=== PATIENT | female | born 1940 | race Caucasian/White ===

== ENCOUNTER 2023-03-15 17:27 | Inpatient (IN) | payer OTHER ==
[~2023-03-15] VITALS: Ht 167.6 cm; Wt 93.2 kg
[2023-03-15] MEDS ORDERED: hydrALAZINE HCL 10 MG TAB PO PRN (20:00)
[2023-03-15] MEDS ORDERED: ACETAMINOPHEN 325 MG TAB PO PRN (20:00)
[2023-03-15] MEDS ORDERED: HYDROcodone-ACET 5/325MG TAB PO PRN (20:00)
[2023-03-15] MEDS ORDERED: MORPHINE SULFATE INJ 2 MG/ml SYRG IV PRN (20:00)
[2023-03-15] MEDS ORDERED: ONDANSETRON HCL 4 MG/2 ML VIAL IV PRN (20:00)
[2023-03-15 22:00] VITALS: BP 148/82
[2023-03-15] MEDS: VANCOMYCIN HCL 125MG/5ML ORAL SOL PO SCH (22:00)
[2023-03-15] MEDS ORDERED: metroNIDAZOLE 500MG/100ML 100 ML IV SCH (23:29)
[2023-03-16] VITALS (9 sets, daily range): BP systolic 119–154; BP diastolic 53–82
[2023-03-16] MEDS: SODIUM CHLORIDE 0.9% 1,000 ML IV SCH ×3 (01:14→13:05)
[2023-03-16 05:56] LABS: Basophils # (auto) 0 10 ^3/uL (0-0.2); Basophils % (auto) 0.5 % (0.0-2.0); Eosinophils # (auto) 0.2 10 ^3/uL (0-0.8); Eosinophils % (auto) 2.1 % (0.0-7.0); Hematocrit 36.1 % (36.0-46.0); Hemoglobin 11.9 g/dL (12.2-16.2); Lymphocytes # (auto) 2.5 10 ^3/uL (0.4-5.4); Lymphocytes % (auto) 31.8 % (10.0-50.0); Mean Corpuscular Hemoglobin 28.5 pg (28.0-32.0); Mean Corpuscular Hgb Conc. 33.1 g/dL (32.0-36.0); Mean Corpuscular Volume 86.1 fL (80.0-100.0); Monocytes # (auto) 1.7 10 ^3/uL (0-1.3); Neutrophils # (auto) 3.4 10 ^3/uL (1.6-8.6); Neutrophils % (auto) 44.1 % (37.0-80.0); Nucleated Red Blood Cells % 0.2 %; Red Blood Cells 4.19 10^6/uL (4.0-5.20); Red Cell Distribution Width 13.4 % (11.8-14.3); White Blood Cell 7.8 10^3/uL (4.4-10.8)
[2023-03-16] MEDS: VANCOMYCIN HCL 125MG/5ML ORAL SOL PO SCH ×4 (06:00→22:30)
[2023-03-16 06:12] LABS: Monocytes % (auto) 21.5 % (0.0-12.0)
[2023-03-16 06:16] LABS: Potassium 3.2 mmol/L (3.5-5.1)
[2023-03-16 06:22] LABS: BUN/Creatinine Ratio 10.1 (10.0-20.0); Calcium 9.7 mg/dL (8.5-10.1)
[2023-03-16] MEDS ORDERED: PANT40T PO (10:56)
[2023-03-16] MEDS ORDERED: ATOR40TA52 PO (10:56)
[2023-03-16] MEDS ORDERED: POTASSIUM CHL 20 Meq TABLET PO ONE (11:00)
[2023-03-16] MEDS ORDERED: POTASSIUM CHL 20MEQ/100ML 100 ML IV ONE (11:00)
[2023-03-16] MEDS: metroNIDAZOLE 500MG/100ML 100 ML IV SCH ×2 (12:16→20:00)
[2023-03-16] MEDS ORDERED: ATORVASTATIN 20 MG TAB PO SCH (22:00)
[2023-03-16] MEDS: ATORVASTATIN 20 MG TAB PO SCH (22:22)
[2023-03-17] MEDS: metroNIDAZOLE 500MG/100ML 100 ML IV SCH ×3 (03:13→19:30)
[2023-03-17] MEDS: SODIUM CHLORIDE 0.9% 1,000 ML IV SCH ×3 (03:18→18:39)
[2023-03-17 05:00] VITALS: BP 137/60
[2023-03-17] MEDS: VANCOMYCIN HCL 125MG/5ML ORAL SOL PO SCH ×4 (05:26→22:30)
[2023-03-17 06:28] LABS: Anion Gap 5 (5-15); BUN/Creatinine Ratio 6.4 (10.0-20.0); Blood Urea Nitrogen 6 mg/dL (7-18); Calcium 9.3 mg/dL (8.5-10.1); Carbon Dioxide 21 mmol/L (21-32); Chloride 117 mmol/L (98-107); GFR African American 74 mL/min; GFR Non-African American 61 mL/min; Glucose 108 mg/dL (74-106); Potassium 3.5 mmol/L (3.5-5.1); Sodium 143 mmol/L (136-145)
[2023-03-17 06:42] LABS: Basophils # (auto) 0 10 ^3/uL (0-0.2); Basophils % (auto) 0.4 % (0.0-2.0); Eosinophils # (auto) 0.1 10 ^3/uL (0-0.8); Eosinophils % (auto) 1.9 % (0.0-7.0); Hematocrit 34.8 % (36.0-46.0); Hemoglobin 11.5 g/dL (12.2-16.2); Lymphocytes % (auto) 30.2 % (10.0-50.0); Mean Corpuscular Hemoglobin 28.2 pg (28.0-32.0); Mean Corpuscular Hgb Conc. 33.1 g/dL (32.0-36.0); Mean Corpuscular Volume 85.1 fL (80.0-100.0); Monocytes # (auto) 1.1 10 ^3/uL (0-1.3); Monocytes % (auto) 16.3 % (0.0-12.0); Neutrophils # (auto) 3.5 10 ^3/uL (1.6-8.6); Neutrophils % (auto) 51.2 % (37.0-80.0); Nucleated Red Blood Cells % 0.2 %; Red Blood Cells 4.09 10^6/uL (4.0-5.20); Red Cell Distribution Width 13.6 % (11.8-14.3); White Blood Cell 6.8 10^3/uL (4.4-10.8)
[2023-03-17 08:30] VITALS: BP 145/65
[2023-03-17 09:08] VITALS: BP 145/65
[2023-03-17] MEDS ORDERED: POTASSIUM CHL 20 Meq TABLET PO ONE (11:15)
[2023-03-17 13:00] VITALS: BP 133/60
[2023-03-17 16:55] VITALS: BP 150/65
[2023-03-17 22:00] VITALS: BP 140/67
[2023-03-17] MEDS: ATORVASTATIN 20 MG TAB PO SCH (22:29)
[2023-03-18] MEDS: metroNIDAZOLE 500MG/100ML 100 ML IV SCH ×2 (03:17→12:14)
[2023-03-18 05:00] VITALS: BP 133/59
[2023-03-18] MEDS: VANCOMYCIN HCL 125MG/5ML ORAL SOL PO SCH ×3 (05:33→18:31)
[2023-03-18 05:50] LABS: Basophils # (auto) 0 10 ^3/uL (0-0.2); Basophils % (auto) 0.3 % (0.0-2.0); Eosinophils # (auto) 0.1 10 ^3/uL (0-0.8); Eosinophils % (auto) 1.4 % (0.0-7.0); Hematocrit 34.9 % (36.0-46.0); Hemoglobin 11.4 g/dL (12.2-16.2); Lymphocytes # (auto) 2.5 10 ^3/uL (0.4-5.4); Lymphocytes % (auto) 30.3 % (10.0-50.0); Mean Corpuscular Hemoglobin 28.4 pg (28.0-32.0); Mean Corpuscular Hgb Conc. 32.6 g/dL (32.0-36.0); Neutrophils # (auto) 4.6 10 ^3/uL (1.6-8.6); Red Blood Cells 4.02 10^6/uL (4.0-5.20); Red Cell Distribution Width 13.6 % (11.8-14.3); White Blood Cell 8.3 10^3/uL (4.4-10.8)
[2023-03-18 06:00] LABS: BUN/Creatinine Ratio 7.2 (10.0-20.0); Potassium 3.8 mmol/L (3.5-5.1)
[2023-03-18] MEDS: SODIUM CHLORIDE 0.9% 1,000 ML IV SCH (08:04)
[2023-03-18 08:05] VITALS: BP 142/74
[2023-03-18 09:00] VITALS: BP 147/74
[2023-03-18 13:00] VITALS: BP 129/62
[2023-03-18] MEDS ORDERED: VANC125PO PO (16:59)
[2023-03-18 17:00] VITALS: BP 149/58
[2023-03-18 19:57] VITALS: BP 148/84
== END 2023-03-18 20:20 | disposition home or self-care (01) | DRG 372 ==
LOC: TELE-EAST 20:42
PROVIDERS: ADMIT Internal Medicine; ATTEND Internal Medicine
DX: A04.72 Enterocolitis due to Clostridium difficile, not specified as recurrent (principal); K51.00 Ulcerative (chronic) pancolitis without complications; E87.6 Hypokalemia; I10 Essential (primary) hypertension; K21.9 Gastro-esophageal reflux disease without esophagitis; Z88.0 Allergy status to penicillin; Z88.2 Allergy status to sulfonamides; Z78.9 Other specified health status; E78.00 Pure hypercholesterolemia, unspecified
CPT/HCPCS: 36415; 80048; 85025; 87081; G0378; J3490

== ENCOUNTER 2023-04-07 11:04 | Emergency (ER) | payer OTHER ==
[~2023-04-07] VITALS: Ht 167.6 cm; Wt 82.4 kg
[~2023-04-07 11:04] MED LIST: ATOR40TA52 PO; VANC125PO PO
[2023-04-07] MEDS ORDERED: FAMOTIDINE (10MG/ML) 2ML VL IV ONE (11:30)
[2023-04-07] MEDS ORDERED: ONDANSETRON HCL 4 MG/2 ML VIAL IV ONE (11:30)
[2023-04-07] MEDS ORDERED: MAALOX PLUS or MAALOX 30 ML PO ONE (11:30)
[2023-04-07] MEDS ORDERED: LACTATED RINGER'S 1,000 ML IV ONE (11:30)
[2023-04-07] MEDS ORDERED: VANCOMYCIN HCL 125MG/5ML ORAL SOL PO ONE (11:30)
[2023-04-07 11:39] LABS: Basophils # (auto) 0 10 ^3/uL (0-0.2); Basophils % (auto) 0.3 % (0.0-2.0); Eosinophils # (auto) 0 10 ^3/uL (0-0.8); Hematocrit 40.3 % (36.0-46.0); Hemoglobin 13.6 g/dL (12.2-16.2); Lymphocytes # (auto) 0.7 10 ^3/uL (0.4-5.4); Lymphocytes % (auto) 4.6 % (10.0-50.0); Mean Corpuscular Hemoglobin 28.7 pg (28.0-32.0); Mean Corpuscular Hgb Conc. 33.8 g/dL (32.0-36.0); Mean Corpuscular Volume 84.8 fL (80.0-100.0); Monocytes # (auto) 1.8 10 ^3/uL (0-1.3); Monocytes % (auto) 12.4 % (0.0-12.0); Neutrophils # (auto) 11.8 10 ^3/uL (1.6-8.6); Neutrophils % (auto) 82.7 % (37.0-80.0); Red Blood Cells 4.75 10^6/uL (4.0-5.20); Red Cell Distribution Width 14.5 % (11.8-14.3); White Blood Cell 14.3 10^3/uL (4.4-10.8)
[2023-04-07 12:04] LABS: Urine Bacteria FEW /hpf (None Seen); Urine Blood Negative /uL (Negative); Urine Mucus FEW (None Seen); Urine Specific Gravity 1.021 (1.001-1.035); Urine WBC 2 /hpf (0 - 5)
[2023-04-07] MEDS ORDERED: IOHEXOL 300 MG/ML 100ML BOTTLE IJ ONE (12:20)
[2023-04-07 13:51] LABS: Albumin 3.4 g/dL (3.4-5.0); Calcium 9.6 mg/dL (8.5-10.1); Potassium 3.8 mmol/L (3.5-5.1)
[2023-04-07 13:55] LABS: BUN/Creatinine Ratio 13.8 (10.0-20.0); Bilirubin, Total 1.3 mg/dL (0.2-1.0); Total Protein 6.8 g/dL (6.4-8.2)
[2023-04-07 14:59] VITALS: BP 129/63
[2023-04-07] MEDS ORDERED: CHL4PW PO (15:37)
[2023-04-07] MEDS ORDERED: FIDA200T PO (15:37)
== END 2023-04-07 16:16 | disposition home or self-care (01) ==
LOC: ER 11:04
DX: K52.9 Noninfective gastroenteritis and colitis, unspecified (principal); Z20.822 Contact with and (suspected) exposure to COVID-19
CPT/HCPCS: 36415; 74177; 80053; 81001; 83605; 83690; 84484; 85025; 87040; 87426; 87804; 93005; 96361; 96374; 96375; 99285; J2405; J3370; J3490; Q9967